=== PATIENT | female | born 1980 | race Caucasian/White ===

== ENCOUNTER 2020-09-24 00:13 | Emergency (ER) | payer OTHER ==
[~2020-09-24 00:13] MED LIST: BYSTOLIC10 MG PO; COLACE 100MG C100 MG PO; EFFEXOR XR150 MG PO; KLONOPIN TAB 00.5 MG PO; NORCO 7.5-3251 EACH PO; PROTONIX40 MG PO; SEROQUEL25 MG PO; SYNTHROID75 MCG PO; VIBRAMYCIN100 MG PO; ZANAFLEX4 MG PO
[2020-09-24 00:50] LABS: HEMOGLOBIN 14.2 gm/dl (12.3-15.3); RED BLOOD COUNT 4.84 M/UL (4.00-5.10); WHITE BLOOD COUNT 14.3 K/UL (4.5-11.0)
[2020-09-24 01:16] LABS: BUN/CREATININE RATIO 11 (0-10)
[2020-09-24] MEDS ORDERED: MIRALAX 119 GR119 GM GT (02:28)
[2020-09-24] MEDS ORDERED: ZOFRAN4 MG PO (02:28)
[2020-09-24] MEDS ORDERED: BENTYL 20MG TAB20 MG PO (02:28)
== END 2020-09-24 02:40 | disposition home or self-care (01) ==
LOC: ER1 00:13
PROVIDERS: Physician Assistant Medical
DX: R10.11 Right upper quadrant pain (principal); R10.12 Left upper quadrant pain; R11.0 Nausea; K21.9 Gastro-esophageal reflux disease without esophagitis; Z90.49 Acquired absence of other specified parts of digestive tract; Z90.89 Acquired absence of other organs
CPT/HCPCS: 80053; 81001; 82150; 83690; 84703; 85025; 96374; 96375; 99284; J1885; J2405; Q9967

== ENCOUNTER 2022-02-09 22:21 | Emergency (ER) | payer OTHER ==
[~2022-02-09 22:21] MED LIST changes: +BENTYL 20MG TAB20 MG PO; +MIRALAX 119 GR119 GM GT; +ZOFRAN4 MG PO
[2022-02-09 22:52] LABS: HEMOGLOBIN 15.1 gm/dl (12.3-15.3); RED BLOOD COUNT 4.94 M/UL (4.00-5.10); WHITE BLOOD COUNT 11.5 K/UL (4.5-11.0)
[2022-02-09 23:30] LABS: BUN/CREATININE RATIO 11 (0-10)
[2022-02-10] MEDS ORDERED: ANTIVERT25 M1 PO (01:26)
== END 2022-02-10 01:47 | disposition home or self-care (01) ==
LOC: ER1 22:21
PROVIDERS: Physician Assistant Medical
DX: I10 Essential (primary) hypertension (principal); R07.9 Chest pain, unspecified; K21.9 Gastro-esophageal reflux disease without esophagitis
CPT/HCPCS: 71045; 80053; 82550; 82553; 84484; 85025; 93005; 99285